=== PATIENT | male | born 1955 | race Caucasian/White ===

== ENCOUNTER 2017-12-27 07:12 | Day surgery (SDC) | payer MEDICARE, MEDICAID ==
[2017-12-27 08:13] VITALS: BMI 25.1
[2017-12-27] MEDS ORDERED: Propofol 10 mg/ml Inj (20 ML) ONE (09:29)
[2017-12-27] MEDS ORDERED: Lactated Ringer's 1,000 ML IV ONE (09:49)
[2017-12-27 10:23] VITALS: TEMP 97.6
[2017-12-27 10:46] VITALS: O2SAT 100
[2017-12-27 11:01] VITALS: BP 119/74; PULSE 61; RESP 16
== END 2017-12-27 11:20 | disposition home or self-care (01) ==
LOC: C.ENDO 07:12
PROVIDERS: ATTEND Internal Medicine Gastroenterology
DX: Z12.11 Encounter for screening for malignant neoplasm of colon (principal); K64.8 Other hemorrhoids
CPT/HCPCS: 45378; J2704; J7120